=== PATIENT | female | born 1990 | race Caucasian/White ===

== ENCOUNTER 2016-10-02 20:11 | Emergency (ER) | payer OTHER ==
[~2016-10-02] VITALS: Ht 167.6 cm; Wt 60.0 kg
[~2016-10-02 20:11] MED LIST: PREN-66 PO
[2016-10-02 20:56] LABS: HEMATOCRIT 47.1 % (36-46); HEMOGLOBIN 15.4 g/dL (12.0-16.0); MEAN CORPUSCULAR HEMOGLOBIN 30.2 pg (26.0-34.0); MEAN CORPUSCULAR HGB CONC 32.6 G/dL (31.0-37.0); MEAN CORPUSCULAR VOLUME 93 fL (80-100); PLATELET COUNT (AUTO) 206 K/uL (150-450); RED BLOOD CELL COUNT(AUTO) 5.09 MIL/uL (4.00-5.20); RED CELL DISTRIBUTION WIDTH 12.9 % (11.5-14.5); WHITE BLOOD COUNT (AUTO) 7.6 K/uL (4.5-11.0)
[2016-10-02 21:05] LABS: ANION GAP 11 mmol/L (8-16); CALCIUM, TOTAL 9.1 mg/dL (8.8-10.5); CARBON DIOXIDE 28 mmol/L (22-29); CHLORIDE 103 mmol/L (98-107); CREATININE 0.89 mg/dL (0.60-1.30); GLOMERULAR FILTR. RATE CALC > 60 mL/min (>60); POTASSIUM 3.8 mmol/L (3.5-5.1); SODIUM SERUM 142 mmol/L (136-145); UREA NITROGEN, BLOOD 18 mg/dL (7-18)
[2016-10-02 21:11] LABS: ALANINE AMINOTRANSFERASE 27 U/L (12-78); ALBUMIN 4.4 g/dL (3.4-5.0); ASPARTATE AMINOTRANSFERASE 24 U/L (15-37); BILIRUBIN,TOTAL 0.5 mg/dL (0.1-1.0); TOTAL PROTEIN, SERUM 8.7 g/dL (6.4-8.2)
[2016-10-02 21:40] LABS: APPEARANCE,URINE CLEAR (CLEAR); GLUCOSE, URINE (UA) NEGATIVE (NEGATIVE); KETONES,URINE >=80 mg/dL (NEGATIVE); LEUKOCYTE ESTERASE ,URINE SMALL (NEGATIVE); OCCULT BLOOD,URINE NEGATIVE (NEGATIVE); PH,URINE 6.5 (5.0-8.0); PROTEIN,URINE TRACE (NEGATIVE)
[2016-10-02 21:40] LABS: BAND NEUTROPHILS % (MANUAL) 15 % (1-5); EOSINOPHILS % (MANUAL) 1 % (1-6); LYMPHOCYTES % (MANUAL) 3 % (22-44); TOTAL CELLS COUNTED 100
[2016-10-02 21:42] LABS: ADD UA MICROSCOPIC YES
[2016-10-02 21:55] LABS: SQUAMOUS EPITHELIAL CELL,UR Moderate /LPF (None Seen)
[2016-10-02 21:56] LABS: RBC,URINE 0-2 /HPF (0-2)
[2016-10-02] MEDS ORDERED: AMOX TR/POT CLAV 875 MG/125 MG TABLET PO ONE (23:15)
[2016-10-02] MEDS ORDERED: SODIUM CHLORIDE 0.9% 1,000 ML IV ONE (23:15)
[2016-10-02] MEDS ORDERED: ONDANSETRON HCL 4 MG TABLET PO ONE (23:15)
[2016-10-03 00:13] VITALS: BP 124/70
== END 2016-10-03 00:18 | disposition home or self-care (01) ==
LOC: EMS 20:13
DX: R11.10 Vomiting, unspecified (principal); Z88.8 Allergy status to other drugs, medicaments and biological substances
CPT/HCPCS: 36415; 80053; 81001; 83690; 84703; 85025; 87086; 96360; 99284; J7030; Q0162; 96374